=== PATIENT | male | born 1995 | race Caucasian/White ===

== ENCOUNTER 2016-11-10 13:50 | Outpatient (RCR) | payer OTHER ==
[~2016-11-10 13:50] MED LIST: CARBATROL300 MG; CONCERTA36 MG PO; LAMICTAL150 MG PO; LEXAPRO20 MG PO
== END 2017-02-08 ==
LOC: WSOH
DX: M65.4 Radial styloid tenosynovitis [de Quervain] (principal); M25.531 Pain in right wrist; X50.0XXA Overexertion from strenuous movement or load, initial encounter; Y99.0 Civilian activity done for income or pay
CPT/HCPCS: 24091; A6549